=== PATIENT | female | born 1960 | race African-American/Black ===

== ENCOUNTER → 2019-10-22 | Outpatient (CLI) | payer OTHER, MEDICAID ==
[~2019-10-22] MED LIST: IBUPROFEN 800800 M1 PO; LORCET 5-325 M1 EACH PO; METOPROLOL SUCC50 MG PO; TYLENOL WITH CO1 TA1 PO; ULTRAM 50MG TAB50 MG PO; XELJANZ5 MG PO
== END ==
LOC: M.PC 13:20
DX: M51.36 Other intervertebral disc degeneration, lumbar region (principal); M48.07 Spinal stenosis, lumbosacral region; E66.9 Obesity, unspecified; M43.16 Spondylolisthesis, lumbar region; M47.816 Spondylosis without myelopathy or radiculopathy, lumbar region; I10 Essential (primary) hypertension; M19.90 Unspecified osteoarthritis, unspecified site; Z79.899 Other long term (current) drug therapy; Z88.8 Allergy status to other drugs, medicaments and biological substances

== ENCOUNTER → 2019-11-03 | Outpatient (CLI) | payer OTHER, MEDICAID | END | disposition home or self-care (01) | LOC: M.PC 02:17 | DX: M51.16 Intervertebral disc disorders with radiculopathy, lumbar region (principal); M43.16 Spondylolisthesis, lumbar region; M48.061 Spinal stenosis, lumbar region without neurogenic claudication; G89.29 Other chronic pain; I10 Essential (primary) hypertension; D64.9 Anemia, unspecified; M19.90 Unspecified osteoarthritis, unspecified site; E66.01 Morbid (severe) obesity due to excess calories; Z98.890 Other specified postprocedural states; Z79.899 Other long term (current) drug therapy; Z68.42 Body mass index [BMI] 45.0-49.9, adult ==

== ENCOUNTER → 2019-11-17 | Outpatient (CLI) | payer OTHER, MEDICAID | LOC: M.PC 02:36 | PROVIDERS: ATTEND Physical Medicine & Rehabilitation | DX: M51.36 Other intervertebral disc degeneration, lumbar region (principal); M48.07 Spinal stenosis, lumbosacral region; E66.01 Morbid (severe) obesity due to excess calories; M43.16 Spondylolisthesis, lumbar region ==

== ENCOUNTER → 2020-01-07 | Outpatient (CLI) | payer OTHER, MEDICAID | LOC: M.PC 05:26 | PROVIDERS: ATTEND Physical Medicine & Rehabilitation | DX: M51.36 Other intervertebral disc degeneration, lumbar region (principal); M43.26 Fusion of spine, lumbar region; M79.652 Pain in left thigh; E66.01 Morbid (severe) obesity due to excess calories; M48.07 Spinal stenosis, lumbosacral region; M47.816 Spondylosis without myelopathy or radiculopathy, lumbar region ==

== ENCOUNTER → 2020-02-16 | Outpatient (CLI) | payer OTHER, MEDICAID | END | disposition home or self-care (01) | LOC: M.PC 11:10 | PROVIDERS: ATTEND Physical Medicine & Rehabilitation | DX: M54.16 Radiculopathy, lumbar region (principal); Z79.899 Other long term (current) drug therapy ==

== ENCOUNTER → 2020-04-21 | Outpatient (CLI) | payer OTHER, MEDICAID ==
[~2020-04-21] MED LIST changes: +HYDROCODON-ACE1 EAC7 PO
== END ==
LOC: M.PC 10:10
PROVIDERS: ATTEND Physical Medicine & Rehabilitation
DX: M51.36 Other intervertebral disc degeneration, lumbar region (principal); M48.07 Spinal stenosis, lumbosacral region; E66.01 Morbid (severe) obesity due to excess calories; M25.552 Pain in left hip; M43.16 Spondylolisthesis, lumbar region